=== PATIENT | female | born 1980 | race African-American/Black ===

== ENCOUNTER 2018-09-07 07:59 | Inpatient (IN) | payer SELFPAY ==
--- NOTE | 2018-09-07 08:46 | PCM.LDHP ---
L&D History of Present Illness - General Date of Service: 09/07/18 Admit Problem/Dx: 09/07/18 13:06 38-year-old 3 para 1011 -Irish female admitted for induction of labor on 09/07/2018 at 39-4/7 weeks gestational age with an BELLA of 09/10/2018. Source of Information: Patient History Limitations: Reports: No Limitations - History of Present Illness Introduction:: Sugey is a 30-year-old 3 para 1011 -Irish female at 39-4/7 weeks gestational age with an BELLA of 09/10/2018 as determined by a certain last menstrual period starting 11/26/2017 is supported by multiple ultrasounds during the course of . Admitted for elective induction of labor. Pitocin and artificial rupture membranes is planned. First visit was on 01/24/2018. Fundal height growth was appropriate. Weight gain was 30 pounds. Babies been in vertex presentation. Her 1 hour GTT was abnormal and she had a normal three-hour gtt. Patient plans to breast-feed. T-dap was administered on 06/16/2018. Patient has uterine fibroid measuring approximately 4 cm x 2.7 x 4 cm in the anterior uterus. Herpes strep screen is negative. Laboratory testing shows blood to be O+ negative MRI ice cream. hemoglobin was 13.5 g/dL. Eyelids are 324,000. She is rubella immune. RPR is nonreactive. Urine culture was negative. Hepatitis B surface antigen and HIV assays both negative. Gonorrhea and chlamydia assays both negative. Second trimester labs showed a large. This test a level of 159. Platelets are 271,000 and hemoglobin was 12.7. Group B strep screen was negative. Three-hour glucose tolerance test showed one hour glucose screen 96. 2R glucose is 162. Glucose is 149 and 3R glucose is 127 mg/dL. Allergies: none Medications: ends 1 daily Past medical history: 1. Miscarriage 1 2. Normal spontaneous vaginal delivery 2008 Past surgical history: Unremarkable Social history: Patient , lives in [place]. She denies any significant most alcohol, drugs or tobacco. 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 Family history: Negative for bleeding, blood clotting, -related problems. Nausea problems reported by the patient. Review of systems: In general patient has no complaints. Baby has been active. Skin: Negative Lungs: No infectious symptoms or shortness of breath Cardiovascular: No chest pain or exercise intolerance Breasts: No lumps, changes in size, pain, dimpling, discharge or axillary or supraclavicular concerns. GI: Negative : Changes associated with . Musculoskeletal: Negative Neurological: Negative In general the patient is well-developed, well-nourished, pleasant female of stated age in no acute distress. Skin is warm dry without lesions. HEENT, neck and back within normal limits. Lungs are clear with good breath sounds in all lung jalloh. Cardiovascular exam shows regular and rhythm without murmurs. Abdomen is gravid with fundal height of 41 cm. Baby in vertex presentation by Nicholas. Genital exam shows cervix to be 2 cm, 60% effaced, soft, -3 station, midposition Extremities and neurological exam are grossly within normal limits. - Related Data Allergies/Adverse Reactions: Allergies Allergy/AdvReac Type Severity Reaction Status Date / Time No Known Allergies Allergy Verified 05/06/18 20:55 Home Medications: Home Meds PNV95/Ferrous Fumarate/FA [ Tablet] 1 each PO DAILY 08/28/18 [History] H&P Review of Systems - Review of Systems: Review Of Systems: See Below L&D Exam - Exam Exam: See Below - Patient Data Result Diagrams: 09/07/18 09:45 Problem List Initiated/Reviewed/Updated: Yes Assessment/Plan Comment:: 1. 39-4/7 week intrauterine admitted for induction of labor 2. Risk factors for the include age 38 years, anterior uterine fibroid greatest dimension 4 cm and language. As patient speaks only Congolese. 3. Group B strep screen is negative 4. Patient plans to breast-feed 5. Patient undecided about pain control and labor and delivery 6. Rubella titer shows immunity is nonreactive. Plan: 1. Pitocin induction of labor with artificial rupture membranes. 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 She appears understand and wishes to proceed 2. Labor and analgesia as per patient desire 3. Support breast-feed decision 4. CBC and RPR upon admission.
[2018-09-07] MEDS ORDERED: Nalbuphine 20 MG/ML 1 ML Syringe IVPUSH PRN (09:19)
[2018-09-07] MEDS ORDERED: Ondansetron 4 MG/2 ML SDV IVPUSH PRN (09:19)
[2018-09-07] MEDS ORDERED: Sodium Chloride 0.9% 10 ML Syringe FLUSH PRN (09:19)
[2018-09-07] MEDS ORDERED: Oxytocin/Lactated Ringers 10 UNIT/1,000 ML BAG IV SCH ×2 (09:30)
[2018-09-07] MEDS: Lactated Ringers 1,000 ML IV SCH (09:53)
[2018-09-07] MEDS ORDERED: Lidocaine 1% 50 ML MDV INJECT ONE (10:00)
[2018-09-07] MEDS ORDERED: Oxytocin/Lactated Ringers 20 UNIT/1,000 ML BAG IV SCH (19:41)
[2018-09-07] MEDS ORDERED: Misoprostol 25 MCG (1/4 of 100 MCG) Tab ONE (20:32)
[2018-09-07] MEDS ORDERED: Misoprostol 25 MCG (1/4 of 100 MCG) Tab PO ONE (20:59)
[2018-09-07] MEDS: Misoprostol 25 MCG (1/4 of 100 MCG) Tab VAG SCH (23:34)
[2018-09-08] MEDS: Misoprostol 25 MCG (1/4 of 100 MCG) Tab VAG SCH (03:05)
[2018-09-08] MEDS: Lactated Ringers 1,000 ML IV SCH (05:11)
[2018-09-08] MEDS ORDERED: ePHEDrine 50 MG/ML SDV IVPUSH PRN (07:28)
[2018-09-08] MEDS ORDERED: diphenhydrAMINE 50 MG/ML SDV IVPUSH PRN (07:28)
[2018-09-08] MEDS ORDERED: fentaNYL/Bupivacaine-NS 2 MCG/ML-0.125%/PF 100 ML Bag EPIDUR PRN (07:28)
[2018-09-08] MEDS ORDERED: fentaNYL 100 MCG/2 ML SDV EPIDUR PRN (07:28)
--- NOTE | 2018-09-08 09:46 | PCM.PREANE ---
Preanesthetic Assessment - Anesthesia/Transfusion/Family Hx Anesthesia History: No Prior Anesthesia Family History of Anesthesia Reaction: No Transfusion History: No Prior Transfusion(s) - Review of Systems General: Fatigue Pulmonary: No Symptoms Cardiovascular: Dyspnea on Exertion Gastrointestinal: Abdominal Pain (labor) Neurological: No Symptoms Other: Reports: None - Physical Assessment Pulse: 98 O2 Sat by Pulse Oximetry: 97 Respiratory Rate: 16 Blood Pressure: 164/45 Temperature: 36.3 C Vital Signs: Last Vital Signs Temp 36.7 C 09/07/18 09:24 Pulse 89 09/07/18 09:24 Resp 16 09/07/18 09:24 BP 131/79 09/07/18 09:24 Pulse Ox Height: 1.57 m Weight: 80.286 kg ASA Class: 2 Mental Status: Alert & Oriented x3 Airway Class: Mallampati = 1 Dentition: Reports: Normal Dentition Thyro-Mental Finger Breadths: 3 Mouth Opening Finger Breadths: 3 ROM/Head Extension: Full Lungs: Clear to Auscultation, Normal Respiratory Effort Cardiovascular: Regular Rate, Regular Rhythm - Lab Values: Laboratory Last Values WBC 5.40 K/mm3 (3.98-10.04) 09/07/18 09:45 RBC 4.13 M/mm3 (3.98-5.22) 09/07/18 09:45 Hgb 13.1 gm/L (11.2-15.7) 09/07/18 09:45 Hct 37.4 % (34.1-44.9) 09/07/18 09:45 MCV 90.6 fl (79.4-94.8) 09/07/18 09:45 MCH 31.7 pg (25.6-32.2) 09/07/18 09:45 MCHC 35.0 g/dl (32.2-35.5) 09/07/18 09:45 RDW Std Deviation 51.4 fL (36.4-46.3) H 09/07/18 09:45 Plt Count 239 K/mm3 (182-369) 09/07/18 09:45 MPV 10.7 fl (9.4-12.3) 09/07/18 09:45 Neut % (Auto) 60.0 % (34.0-71.1) 09/07/18 09:45 Lymph % (Auto) 28.1 % (19.3-51.7) 09/07/18 09:45 Power % (Auto) 10.4 % (4.7-12.5) 09/07/18 09:45 Eos % (Auto) 1.3 (0.7-5.8) 09/07/18 09:45 Baso % (Auto) 0.2 % (0.1-1.2) 09/07/18 09:45 Neut # (Auto) 3.24 K/mm3 (1.56-6.13) 09/07/18 09:45 Lymph # (Auto) 1.52 K/mm3 (1.18-3.74) 09/07/18 09:45 Power # (Auto) 0.56 K/mm3 (0.24-0.36) H 09/07/18 09:45 Eos # (Auto) 0.07 K/mm3 (0.04-0.36) 09/07/18 09:45 Baso # (Auto) 0.01 K/mm3 (0.01-0.08) 09/07/18 09:45 RPR Non-reactive (NONREACTIVE) 09/07/18 09:45 - Allergies Allergies/Adverse Reactions: Allergies Allergy/AdvReac Type Severity Reaction Status Date / Time No Known Allergies Allergy Verified 05/06/18 20:55 - Anesthesia Plan Pre-Op Medication Ordered: None - Acknowledgements Anesthesia Type Planned: Epidural Pt an Appropriate Candidate for the Planned Anesthesia: Yes Alternatives and Risks of Anesthesia Discussed w Pt/Guardian: Yes Pt/Guardian Understands and Agrees with Anesthesia Plan: Yes PreAnesthesia Questionnaire - Past Health History Medical/Surgical History: Denies Medical/Surgical History Gastrointestinal History: Reports: GERD 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 Smoking Status *Q: Never Smoker Tobacco Use Within Last Twelve Months: No Recreational Drug Use History: No - HOME MEDS Home Medications: Home Meds PNV95/Ferrous Fumarate/FA [ Tablet] 1 each PO DAILY 08/28/18 [History] - CURRENT (IN HOUSE) MEDS Current Meds: Current Medications Diphenhydramine HCl (Benadryl) 25 mg IVPUSH Q6H PRN PRN Reason: Itching Ephedrine Sulfate (Ephedrine Sulfate) 5 mg IVPUSH ASDIRECTED PRN PRN Reason: HYPOTENTSION Fentanyl (Sublimaze) 100 mcg EPIDUR Q3H PRN PRN Reason: Pain Last Admin: 09/08/18 09:38 Dose: 100 mcg Fentanyl/Bupivacaine HCl (Jpblgcof-Stxhx-Gd 2 Mcg/Ml-0.125%) 100 ml EPIDUR ASDIRECTED PRN PRN Reason: Pain Last Admin: 09/08/18 09:39 Dose: 100 ml Lactated Ringer's (Ringers, Lactated) 1,000 mls @ 100 mls/hr IV ASDIRECTED VIRGILIO Last Admin: 09/08/18 05:11 Dose: 100 mls/hr Oxytocin/Lactated Ringer's (Pitocin In Lr 10 Units/1,000 Ml) 10 unit in 1,000 mls @ 500 mls/hr IV .CONTINUOUS VIRGILIO Oxytocin/Lactated Ringer's (Pitocin In Lr 20 Units/1,000 Ml) 20 unit in 1,000 mls @ 60 mls/hr IV TITRATE VIRGILIO; Protocol Last Admin: 09/07/18 19:44 Dose: 60 mls/hr Nalbuphine HCl (Nubain) 10 mg IVPUSH Q2H PRN PRN Reason: pain Last Admin: 09/08/18 03:18 Dose: 10 mg Ondansetron HCl (Zofran) 4 mg IVPUSH Q4H PRN PRN Reason: Nausea/Vomiting Sodium Chloride (Saline Flush) 10 ml FLUSH ASDIRECTED PRN PRN Reason: Keep Vein Open Discontinued Medications Oxytocin/Lactated Ringer's (Pitocin In Lr 10 Units/1,000 Ml) 10 unit in 1,000 mls @ 12 mls/hr IV TITRATE VIRGILIO; Protocol Last Titration: 09/07/18 18:35 Dose: 20 munits/min, 120 mls/hr Lidocaine HCl (Xylocaine 1%) 50 ml INJECT ONETIME ONE Stop: 09/07/18 10:01 Misoprostol (Cytotec) Confirm Administered Dose 25 mcg .ROUTE .STK-MED ONE Stop: 09/07/18 20:33 Last Admin: 09/07/18 21:07 Dose: Not Given Misoprostol (Cytotec) 25 mcg PO ONETIME ONE Stop: 09/07/18 21:00 Last Admin: 09/07/18 20:35 Dose: 25 mcg Misoprostol (Cytotec) 50 mcg VAG Q3H VIRGILIO Last Admin: 09/08/18 03:05 Dose: 50 mcg
--- NOTE | 2018-09-08 15:25 | PCM.SN ---
- Free Text/Narrative Note: Sugey is a 38-year-old 3 para 2012 -Surinamese female who is admitted on 09/07/2018 for induction of labor. She was 39-4/7 weeks gestational age. Induction initially was with Pitocin but with less than optimal sensitivity noted to the medication she underwent several doses of Cytotec during the course of the night of her induction. With this patient changed to 3 cm, 80% effaced and had spontaneous rupture membranes. heart tones remained normal throughout the course. Patient had an epidural late in labor. She had a couple doses of Nubain prior to that. She went rapidly from 5-10 cm dilation. She pushed but with contractions it was difficult to tell whether the heart tones were were normal because of maternal heart rate was in the 130s to 140s. Because intermittent auscultation of heart rate in the 70s and 80s decision was made to facilitate delivery with vacuum extraction. Vacuum extractor was applied and with one contraction the baby's head delivered. Shoulders delivered without problems and the remainder of the baby followed without concerns. Baby was placed on mom's abdomen. The baby was born at 1018 hrs. on 09/08/2018. He weighed 3490 g (7 pounds 11.1 ounces), had Apgars of 4 and 7 end of length of 20.5 inches. Cord was clamped 2 and was cut by the patient's mother. The baby was taken to the warmer and was given blow-by oxygen and a short course of positive pressure ventilation. Baby responded relatively quickly and did well. IV Pitocin was restarted at a rapid rate after delivery the baby to facilitate increase in uterine tone and decrease likelihood of bleeding. Baby delivered in a direct occiput anterior position. Cord blood was obtained after the delivery of the baby. The patient was noted to have second-degree laceration. This was repaired with 3 -0 Monocryl using the epidural anesthesia for pain control. The placenta delivered in a Meza presentation at 1023 hrs., appeared intact and complete and was discarded per patient desire. Patient plans to breast-feed. Estimated blood loss 100 mL. Condition: Good
[2018-09-08] MEDS ORDERED: Witch Hazel Medicated Pads 40/Jar TOP PRN (16:59)
[2018-09-08] MEDS ORDERED: Benzocaine/Menthol 20%-0.5% Spray 56 GM Canister TOP PRN (16:59)
[2018-09-08] MEDS ORDERED: Docusate Sodium 100 MG Cap PO PRN (16:59)
[2018-09-08] MEDS ORDERED: Lanolin 100% Cream 7 GM Tube TOP PRN (16:59)
[2018-09-08] MEDS ORDERED: Acetaminophen 325 MG Tab PO PRN (16:59)
[2018-09-08] MEDS ORDERED: Bupivacaine 0.25% 10 ML SDV ONE (22:00)
[2018-09-09] MEDS: Ibuprofen 600 MG Tab PO PRN ×2 (01:49→22:55)
--- NOTE | 2018-09-09 06:40 | PCM.SN ---
- Free Text/Narrative Note: note: day 1 status post vacuum extraction delivery Patient is doing well in the period. Minimal lochia, voiding well, ambulated without problems. Nursing without concerns. Patient is afebrile, vital signs are stable Abdomen is flat, soft, uterus is below the umbilicus and is firm and nontender. Legs are nontender. Assessment: recovery going well. Plan: Routine care. Patient be discharged home within the next 24-48 hours.
--- NOTE | 2018-09-09 07:43 | PCM48HPAN ---
Post Anesthesia Note - EVALUATION WITHIN 48HRS OF ANESTHETIC Vital Signs in Normal Range: Yes Patient Participated in Evaluation: Yes Respiratory Function Stable: Yes Airway Patent: Yes Cardiovascular Function Stable: Yes Hydration Status Stable: Yes Pain Control Satisfactory: Yes Nausea and Vomiting Control Satisfactory: Yes Mental Status Recovered: Yes (no complaints) Pulse Rate: 102 Resp Rate: 14 Temperature: 98.2 F Blood Pressure: 128/81
[2018-09-09] MEDS: Prenatal Multivitamin with Calcium/Folic Acid/Iron Tab PO SCH (16:27)
--- NOTE | 2018-09-10 09:48 | PCM.PNPP ---
- General Info Date of Service: 09/10/18 Functional Status: Reports: Pain Controlled, Tolerating Diet, Ambulating, Urinating - Review of Systems General: Reports: No Symptoms Pulmonary: Reports: No Symptoms Cardiovascular: Reports: No Symptoms Gastrointestinal: Reports: No Symptoms Genitourinary: Reports: No Symptoms Musculoskeletal: Reports: No Symptoms - Patient Data Vital Signs - Most Recent: Last Vital Signs Temp 36.7 C 09/10/18 08:42 Pulse 95 09/10/18 08:42 Resp 14 09/10/18 08:42 BP 125/82 09/10/18 08:42 Pulse Ox 99 09/10/18 08:42 Weight - Most Recent: 80.286 kg I&O - Last 24 Hours: Intake & Output 09/09/18 09/10/18 09/10/18 22:59 06:59 14:59 Intake Total 600 Balance 600 Med Orders - Current: Current Medications Acetaminophen (Tylenol) 650 mg PO Q4H PRN PRN Reason: mild pain or fever Benzocaine/Menthol (Dermoplast Pain Relief [place]) 0 gm TOP ASDIRECTED PRN PRN Reason: Perineal Comfort Measure Docusate Sodium (Colace) 100 mg PO BID PRN PRN Reason: Constipation Last Admin: 09/09/18 01:48 Dose: 100 mg Emollient Ointment (Lansinoh Hpa) 0 gm TOP ASDIRECTED PRN PRN Reason: Sore Nipples Ibuprofen (Motrin) 600 mg PO Q4H PRN PRN Reason: Mild pain or fever Last Admin: 09/09/18 22:55 Dose: 600 mg Prenat Multivit/[place]/Iron/Folic Ac ( Plus Iron) 1 each PO DAILY VIRGILIO Last Admin: 09/09/18 16:27 Dose: Not Given Witch Anabel (Tucks) 1 pad TOP ASDIRECTED PRN PRN Reason: Pain Discontinued Medications Bupivacaine HCl (Sensorcaine-Mpf 0.25%) 10 ml .ROUTE .STK-MED ONE Stop: 09/08/18 22:01 Diphenhydramine HCl (Benadryl) 25 mg IVPUSH Q6H PRN PRN Reason: Itching Ephedrine Sulfate (Ephedrine Sulfate) 5 mg IVPUSH ASDIRECTED PRN PRN Reason: HYPOTENTSION Fentanyl (Sublimaze) 100 mcg EPIDUR Q3H PRN PRN Reason: Pain Last Admin: 09/08/18 09:38 Dose: 100 mcg Fentanyl/Bupivacaine HCl ([place]ykkbt[place]-Mbtrn-Jw 2 Mcg/Ml-0.125%) 100 ml EPIDUR ASDIRECTED PRN PRN Reason: Pain Last Admin: 09/08/18 09:39 Dose: 100 ml Lactated Ringer's (Ringers, Lactated) 1,000 mls @ 100 mls/hr IV ASDIRECTED VIRGILIO Last Admin: 09/08/18 05:11 Dose: 100 mls/hr Oxytocin/Lactated Ringer's (Pitocin In Lr 10 Units/1,000 Ml) 10 unit in 1,000 mls @ 500 mls/hr IV .CONTINUOUS VIRGILIO Oxytocin/Lactated Ringer's (Pitocin In Lr 10 Units/1,000 Ml) 10 unit in 1,000 mls @ 12 mls/hr IV TITRATE VIRGILIO; Protocol Last Titration: 09/07/18 18:35 Dose: 20 munits/min, 120 mls/hr Oxytocin/Lactated Ringer's (Pitocin In Lr 20 Units/1,000 Ml) 20 unit in 1,000 mls @ 60 mls/hr IV TITRATE VIRGILIO; Protocol Last Admin: 09/07/18 19:44 Dose: 60 mls/hr Lidocaine HCl (Xylocaine 1%) 50 ml INJECT ONETIME ONE Stop: 09/07/18 10:01 Last Admin: 09/08/18 23:26 Dose: Not Given Misoprostol (Cytotec) Confirm Administered Dose 25 mcg .ROUTE .STK-MED ONE Stop: 09/07/18 20:33 Last Admin: 09/07/18 21:07 Dose: Not Given Misoprostol (Cytotec) 25 mcg PO ONETIME ONE Stop: 09/07/18 21:00 Last Admin: 09/07/18 20:35 Dose: 25 mcg Misoprostol (Cytotec) 50 mcg VAG Q3H VIRGILIO Last Admin: 09/08/18 03:05 Dose: 50 mcg Nalbuphine HCl (Nubain) 10 mg IVPUSH Q2H PRN PRN Reason: pain Last Admin: 09/08/18 03:18 Dose: 10 mg Ondansetron HCl (Zofran) 4 mg IVPUSH Q4H PRN PRN Reason: Nausea/Vomiting Sodium Chloride (Saline Flush) 10 ml FLUSH ASDIRECTED PRN PRN Reason: Keep Vein Open - Infant Interaction Disposition, : in Room with Family Interaction: Holding Feeding: Breastfed ; Nursed Well Support Person: , Mother - Recovery Exam Fundal Tone: Firm Fundal Level: 1 Fingerbreadths Below Umbilicus Fundal Placement: Midline Lochia Amount: Small Lochia Color: Rubra/Red Perineum Description: Other (see below) Other Perinuem Description: 2nd degree with repair Episiotomy/Laceration: Approximated Bladder Status: Voiding Urinary Elimination: Voided - Exam General: Alert, Oriented, Cooperative GI/Abdominal Exam: Soft, Non-Tender Extremities: Normal Inspection Skin: Warm, Dry, Intact - Problem List Review Problem List Initiated/Reviewed/Updated: Yes - My Orders Last 24 Hours: My Active Orders 09/10/18 09:43 Ready for Discharge [RC] PER UNIT ROUTINE - Assessment Assessment:: S/p - Plan Plan:: S/p * Routine cares * Encourage breast feeding * Discharge home in 2 days
--- NOTE | 2018-09-10 09:52 | PCM.DCSUM1 ---
Discharge Summary - Discharge Data Discharge Date: 09/10/18 Discharge Disposition: Home, Self-Care 01 Condition: Good - Patient Summary/Data Complications: None Consults: None Recommended Follow-up Testing/Procedures: Follow up in 2 weeks for check Hospital Course: 38 y/o at 39 4/7 wks presented for elective IOL. This was done with cytotec, pitocin, and AROM. She progressed well and underwent a VAVD due to concerns for bradycardia. See delivery note. she did well and was discharged home on PPD#2 - Patient Instructions Diet: Regular Diet as Tolerated Activity: As Tolerated Activity, Other: Pelvic rest for 6 weeks Driving: May Drive Today Showering/Bathing: May Shower Showering/Bathing, Other: May Bathe Notify Provider of: Fever, Increased Pain, Swelling and Redness, Drainage, Nausea and/or Vomiting - Discharge Plan *PRESCRIPTION DRUG MONITORING PROGRAM REVIEWED*: Not Applicable *COPY OF PRESCRIPTION DRUG MONITORING REPORT IN PATIENT CHRISTINA: Not Applicable Home Medications: Home Meds PNV95/Ferrous Fumarate/FA [ Tablet] 1 each PO DAILY 08/28/18 [History] Docusate Sodium [Colace] 100 mg PO BID PRN cap 09/10/18 [Rx] Ibuprofen [Motrin] 600 mg PO Q4H PRN tablet 09/10/18 [Rx] Referrals: Luis Powers MD [Primary Care Provider] - (2 weeks for post op check ) - Discharge Summary/Plan Comment DC Time >30 min.: No - Patient Data Vitals - Most Recent: Last Vital Signs Temp 36.7 C 09/10/18 08:42 Pulse 95 09/10/18 08:42 Resp 14 09/10/18 08:42 BP 125/82 09/10/18 08:42 Pulse Ox 99 09/10/18 08:42 Weight - Most Recent: 80.286 kg I&O - Last 24 hours: Intake & Output 09/09/18 09/10/18 09/10/18 22:59 06:59 14:59 Intake Total 600 Balance 600 Med Orders - Current: Current Medications Acetaminophen (Tylenol) 650 mg PO Q4H PRN PRN Reason: mild pain or fever Benzocaine/Menthol (Dermoplast Pain Relief [place]) 0 gm TOP ASDIRECTED PRN PRN Reason: Perineal Comfort Measure Docusate Sodium (Colace) 100 mg PO BID PRN PRN Reason: Constipation Last Admin: 09/09/18 01:48 Dose: 100 mg Emollient Ointment (Lansinoh Hpa) 0 gm TOP ASDIRECTED PRN PRN Reason: Sore Nipples Ibuprofen (Motrin) 600 mg PO Q4H PRN PRN Reason: Mild pain or fever Last Admin: 09/09/18 22:55 Dose: 600 mg Prenat Multivit/[place]/Iron/Folic Ac ( Plus Iron) 1 each PO DAILY VIRGILIO Last Admin: 09/09/18 16:27 Dose: Not Given [place] Anabel (Tucks) 1 pad TOP ASDIRECTED PRN PRN Reason: Pain Discontinued Medications Bupivacaine HCl (Sensorcaine-Mpf 0.25%) 10 ml .ROUTE .[facility]-MED ONE Stop: 09/08/18 22:01 Diphenhydramine HCl (Benadryl) 25 mg IVPUSH Q6H PRN PRN Reason: Itching Ephedrine Sulfate (Ephedrine Sulfate) 5 mg IVPUSH ASDIRECTED PRN PRN Reason: HYPOTENTSION Fentanyl (Sublimaze) 100 mcg EPIDUR Q3H PRN PRN Reason: Pain Last Admin: 09/08/18 09:38 Dose: 100 mcg Fentanyl/Bupivacaine HCl ([place]-Mkxab-Pa 2 Mcg/Ml-0.125%) 100 ml EPIDUR ASDIRECTED PRN PRN Reason: Pain Last Admin: 09/08/18 09:39 Dose: 100 ml Lactated Ringer's (Ringers, Lactated) 1,000 mls @ 100 mls/hr IV ASDIRECTED VIRGILIO Last Admin: 09/08/18 05:11 Dose: 100 mls/hr Oxytocin/Lactated Ringer's (Pitocin In Lr 10 Units/1,000 Ml) 10 unit in 1,000 mls @ 500 mls/hr IV .CONTINUOUS VIRGILIO Oxytocin/Lactated Ringer's (Pitocin In Lr 10 Units/1,000 Ml) 10 unit in 1,000 mls @ 12 mls/hr IV TITRATE VIRGILIO; Protocol Last Titration: 09/07/18 18:35 Dose: 20 munits/min, 120 mls/hr Oxytocin/Lactated Ringer's (Pitocin In Lr 20 Units/1,000 Ml) 20 unit in 1,000 mls @ 60 mls/hr IV TITRATE VIRGILIO; Protocol Last Admin: 09/07/18 19:44 Dose: 60 mls/hr Lidocaine HCl (Xylocaine 1%) 50 ml INJECT ONETIME ONE Stop: 09/07/18 10:01 Last Admin: 09/08/18 23:26 Dose: Not Given Misoprostol (Cytotec) Confirm Administered Dose 25 mcg .ROUTE .STK-MED ONE Stop: 09/07/18 20:33 Last Admin: 09/07/18 21:07 Dose: Not Given Misoprostol (Cytotec) 25 mcg PO ONETIME ONE Stop: 09/07/18 21:00 Last Admin: 09/07/18 20:35 Dose: 25 mcg Misoprostol (Cytotec) 50 mcg VAG Q3H VIRGILIO Last Admin: 09/08/18 03:05 Dose: 50 mcg Nalbuphine HCl (Nubain) 10 mg IVPUSH Q2H PRN PRN Reason: pain Last Admin: 09/08/18 03:18 Dose: 10 mg Ondansetron HCl (Zofran) 4 mg IVPUSH Q4H PRN PRN Reason: Nausea/Vomiting Sodium Chloride (Saline Flush) 10 ml FLUSH ASDIRECTED PRN PRN Reason: Keep Vein Open
[2018-09-10] MEDS: Prenatal Multivitamin with Calcium/Folic Acid/Iron Tab PO SCH (14:38)
== END 2018-09-10 15:00 | disposition home or self-care (01) | DRG 807 ==
LOC: JD.OB 08:21 → OBSVTOIN 09-08 10:18 → JD.OB 09-08 10:19
PROVIDERS: ADMIT Obstetrics & Gynecology; ATTEND Obstetrics & Gynecology
PROC: 3E033VJ Introduction of Other Hormone into Peripheral Vein, Percutaneous Approach (ICD-10-PCS; principal; 2018-09-08)
PROC: 10907ZC Drainage of Amniotic Fluid, Therapeutic from Products of Conception, Via Natural or Artificial Opening (ICD-10-PCS; principal; 2018-09-08)
PROC: 3E0P7VZ Introduction of Hormone into Female Reproductive, Via Natural or Artificial Opening (ICD-10-PCS; principal; 2018-09-08)
PROC: 10D07Z6 Extraction of Products of Conception, Vacuum, Via Natural or Artificial Opening (ICD-10-PCS; principal; 2018-09-08)
PROC: 0KQM0ZZ Repair Perineum Muscle, Open Approach (ICD-10-PCS; principal; 2018-09-08)
PROC: 3E0R3BZ Introduction of Anesthetic Agent into Spinal Canal, Percutaneous Approach (ICD-10-PCS; 2018-09-08)
PROC: 00HU33Z Insertion of Infusion Device into Spinal Canal, Percutaneous Approach (ICD-10-PCS; 2018-09-08)
DX: O34.13 Maternal care for benign tumor of corpus uteri, third trimester (principal); Z37.0 Single live birth; O76 Abnormality in fetal heart rate and rhythm complicating labor and delivery; D25.9 Leiomyoma of uterus, unspecified; O70.1 Second degree perineal laceration during delivery; Z3A.39 39 weeks gestation of pregnancy
CPT/HCPCS: 01967; 36415; 51701; 59025; 59409; 85025; 86592; A9270-GY; J2300; J2590; J3010; J3490; J7120

== ENCOUNTER 2019-02-01 02:52 | Emergency (ER) | payer MEDICAID, SELFPAY ==
[2019-02-01] MEDS ORDERED: Ondansetron 4 MG Tab.DIS PO ONE (04:26)
--- NOTE | 2019-02-01 04:30 | EDM.PDOC ---
ED HPI GENERAL MEDICAL PROBLEM - General Chief Complaint: Gastrointestinal Problem Stated Complaint: vomiting Time Seen by Provider: 02/01/19 03:08 Source of Information: Reports: Patient, Family (Mother), RN Notes Reviewed History Limitations: Reports: Language Barrier (Yi is not her 1st language) - History of Present Illness INITIAL COMMENTS - FREE TEXT/NARRATIVE: Mrs. Weaver is a very pleasant 38-year-old woman with no past medical or surgical history, who states that she had been experiencing vaginal itchiness for about 5 months, even while with her child that was delivered on 09/08. The patient did not, however, discuss her vaginal itchiness with her OB/ TEAM GUIDE. The patient then developed lower back pain about a week ago. It is stabbing in character, and constant. She has not identified any modifiers. No recent fever. The patient inserted vaginal miconazole for the first time last night, prior to going to bed. She then developed nausea and vomiting around 02: 00 this morning. She denies having any abdominal pain or urinary symptoms. No recent constipation or diarrhea. No prior similar symptoms. The patient does not have a PCP. Her FEATHER MAKER is Dr. Luis Powers. She last saw him around October 2018. Lower Back Pain Score (Numeric/FACES): 10 - Related Data Allergies Allergy/AdvReac Type Severity Reaction Status Date / Time No Known Allergies Allergy Verified 02/01/19 03:10 Home Meds: Home Meds PNV95/Ferrous Fumarate/FA [ Tablet] 1 each PO DAILY 08/28/18 [History] Docusate Sodium [Colace] 100 mg PO BID PRN cap 09/10/18 [Rx] Ibuprofen [Motrin] 600 mg PO Q4H PRN tablet 09/10/18 [Rx] Nitrofurantoin Monohyd/M-Cryst [Macrobid 100 mg Capsule] 1 cap PO Q12H #9 capsule 02/01/19 [Rx] Ondansetron [Zofran ODT] 1 tab PO Q8H PRN #10 tab.dis 02/01/19 [Rx] Past Medical History FEATHER MAKER History: Reports: Endocrine/Metabolic History: Reports: Obesity/BMI 30+ Social & Family History - Tobacco Use Smoking Status *Q: Never Smoker - Caffeine Use Caffeine Use: Reports: Tea - Alcohol Use Alcohol Use History: No - Recreational Drug Use Recreational Drug Use: No - Living Situation & Occupation Living situation: Reports: , with Spouse, with Family (3 kids + mother-in -law) ED ROS GENERAL - Review of Systems Review Of Systems: ROS reveals no pertinent complaints other than HPI. ED EXAM, GENERAL - Physical Exam Exam: See Below Exam Limited By: No Limitations General Appearance: Alert, WD/WN, No Apparent Distress Eye Exam: Bilateral Eye: EOMI, Normal Inspection Ears: Normal External Exam, Hearing Grossly Normal Nose: Normal Inspection Throat/Mouth: Normal Inspection, Normal Lips, Normal Voice, No Airway Compromise Head: Atraumatic, Normocephalic Neck: Normal Inspection, Full Range of Motion Respiratory/Chest: No Respiratory Distress, Lungs Clear, Normal Breath Sounds, No Accessory Muscle Use Cardiovascular: Normal Peripheral Pulses, Regular Rate, Rhythm, No Edema, No Gallop, No JVD, No Murmur, No Rub Peripheral Pulses: 4+: Radial (L), Radial (R) GI/Abdominal: Normal Bowel Sounds, Soft, No Organomegaly, No Distention, No Abnormal Bruit, No Mass, Tender (Mild, suprapubic region only. Nontender elsewhere.) (Female) Exam: Other (Vagina coated with miconazole cream). No: Vaginal Lesions Rectal (Female) Exam: Deferred Back Exam: Normal Inspection, Full Range of Motion. No: CVA Tenderness (L), CVA Tenderness (R) Extremities: Normal Inspection, Normal Range of Motion, No Pedal Edema, Normal Capillary Refill Neurological: Alert, Oriented, Normal Cognition, No Motor/Sensory Deficits Psychiatric: Normal Affect Skin Exam: Warm, Dry, Intact, Normal Color, No Rash Course - Vital Signs Last Recorded V/S: Last Vital Signs Temp 36.6 C 02/01/19 03:05 Pulse 89 02/01/19 03:05 Resp 18 02/01/19 03:05 BP 132/94 H 02/01/19 03:05 Pulse Ox 99 02/01/19 03:05 - Orders/Labs/Meds Labs: Laboratory Tests 02/01/19 02/01/19 02/01/19 Range/Units 04:38 04:38 04:40 WBC 11.35 H (3.98-10.04) K/mm3 RBC 4.28 (3.98-5.22) M/mm3 Hgb 13.0 (11.2-15.7) gm/dl Hct 38.6 (34.1-44.9) % MCV 90.2 (79.4-94.8) fl MCH 30.4 (25.6-32.2) pg MCHC 33.7 (32.2-35.5) g/dl RDW Std Deviation 46.7 H (36.4-46.3) fL Plt Count 336 D (182-369) K/mm3 MPV 9.9 (9.4-12.3) fl Neut % (Auto) 78.0 H (34.0-71.1) % Lymph % (Auto) 15.8 L (19.3-51.7) % [place]inger % (Auto) 5.6 (4.7-12.5) % Eos % (Auto) 0.4 L (0.7-5.8) Baso % (Auto) 0.1 (0.1-1.2) % Neut # (Auto) 8.86 H (1.56-6.13) K/mm3 Lymph # (Auto) 1.79 (1.18-3.74) K/mm3 Grainger # (Auto) 0.64 H (0.24-0.36) K/mm3 Eos # (Auto) 0.04 (0.04-0.36) K/mm3 Baso # (Auto) 0.01 (0.01-0.08) K/mm3 Sodium 141 (136-145) mEq/L Potassium 3.4 L (3.5-5.1) mEq/L Chloride 104 (98-107) mEq/L Carbon Dioxide 26 (21-32) mEq/L Anion Gap 14.4 (5-15) BUN 13 (7-18) mg/dL Creatinine 0.9 (0.55-1.02) mg/dL Est Cr Clr Drug Dosing 76.26 mL/min Estimated GFR (MDRD) > 60 (>60) mL/min BUN/Creatinine Ratio 14.4 (14-18) Glucose 114 H (74-106) mg/dL Calcium 9.7 (8.5-10.1) mg/dL Total Bilirubin 0.4 (0.2-1.0) mg/dL AST 24 (15-37) U/L ALT 32 (14-59) U/L Alkaline Phosphatase 114 (46-116) U/L Total Protein 8.8 H (6.4-8.2) g/dl Albumin 3.8 (3.4-5.0) g/dl Globulin 5.0 gm/dL Albumin/Globulin Ratio 0.8 L (1-2) Urine Color Yellow (Yellow) Urine Appearance Cloudy H (Clear) Urine pH 6.0 (5.0-8.0) Ur Specific [place] 1.025 (1.005-1.030) Urine Protein 2+ H (Negative) Urine Glucose (UA) Negative (Negative) Urine Ketones Negative (Negative) Urine Occult Blood 3+ H (Negative) Urine Nitrite Negative (Negative) Urine Bilirubin Negative (Negative) Urine Urobilinogen 0.2 (0.2-1.0) Ur Leukocyte Esterase Negative (Negative) Urine RBC >100 H (0-5) /hpf Urine WBC 0-5 (0-5) /hpf Ur Epithelial Cells 5-10 H (0-5) /hpf Urine Bacteria Many H (FEW) /hpf Urine Mucus Moderate H (FEW) /hpf Urine HCG, Qual (NEGATIVE) 02/01/19 Range/Units 04:40 WBC (3.98-10.04) K/mm3 RBC (3.98-5.22) M/mm3 Hgb (11.2-15.7) gm/dl Hct (34.1-44.9) % MCV (79.4-94.8) fl MCH (25.6-32.2) pg MCHC (32.2-35.5) g/dl RDW Std Deviation (36.4-46.3) fL Plt Count (182-369) K/mm3 MPV (9.4-12.3) fl Neut % (Auto) (34.0-71.1) % Lymph % (Auto) (19.3-51.7) % Grainger % (Auto) (4.7-12.5) % Eos % (Auto) (0.7-5.8) Baso % (Auto) (0.1-1.2) % Neut # (Auto) (1.56-6.13) K/mm3 Lymph # (Auto) (1.18-3.74) K/mm3 [place]inger # (Auto) (0.24-0.36) K/mm3 Eos # (Auto) (0.04-0.36) K/mm3 Baso # (Auto) (0.01-0.08) K/mm3 Sodium (136-145) mEq/L Potassium (3.5-5.1) mEq/L Chloride (98-107) mEq/L Carbon Dioxide (21-32) mEq/L Anion Gap (5-15) BUN (7-18) mg/dL Creatinine (0.55-1.02) mg/dL Est Cr Clr Drug Dosing mL/min Estimated GFR (MDRD) (>60) mL/min BUN/Creatinine Ratio (14-18) Glucose (74-106) mg/dL Calcium (8.5-10.1) mg/dL Total Bilirubin (0.2-1.0) mg/dL AST (15-37) U/L ALT (14-59) U/L Alkaline Phosphatase (46-116) U/L Total Protein (6.4-8.2) g/dl Albumin (3.4-5.0) g/dl Globulin gm/dL Albumin/Globulin Ratio (1-2) Urine Color (Yellow) Urine Appearance (Clear) Urine pH (5.0-8.0) Ur Specific [place] (1.005-1.030) Urine Protein (Negative) Urine Glucose (UA) (Negative) Urine Ketones (Negative) Urine Occult Blood (Negative) Urine Nitrite (Negative) Urine Bilirubin (Negative) Urine Urobilinogen (0.2-1.0) Ur Leukocyte Esterase (Negative) Urine RBC (0-5) /hpf Urine WBC (0-5) /hpf Ur Epithelial Cells (0-5) /hpf Urine Bacteria (FEW) /hpf Urine Mucus (FEW) /hpf Urine HCG, Qual Negative (NEGATIVE) Meds: Medications Discontinued Medications Generic Name Dose Route Start Last Admin Trade Name Freq PRN Reason Stop Dose Admin Ondansetron HCl 4 mg 02/01/19 04:26 02/01/19 04:42 Zofran Odt PO 02/01/19 04:27 4 mg ONETIME ONE Administration - Re-Assessments/Exams Free Text/Narrative Re-Assessment/Exam: 02/01/19 04:28 I have ordered a urinalysis and urine test to rule out a UTI/ as the cause of the patient's lower back pain. I have ordered some blood work to make sure that she has not suffered a significant fluid or electrolyte shift as a result of her vomiting, and I have ordered some Zofran to treat her nausea. After the patient has provided a urine sample, I will perform a pelvic exam to ascertain whether or not she has a vaginal infection, but based on her history, I doubt it, since she reports having vaginal itchiness since prior to delivering on 09/08/2018. Her delivery, however, was vaginal, therefore if she had a vaginal infection, it would likely have been seen by Dr. Powers at the time of delivery. 02/01/19 05:36 I performed a pelvic examination. The patient's vagina is coated with the miconazole cream, therefore I did not obtain any vaginal/cervical swabs. I did not, however, see any abnormalities, such as erythema or any evidence of a yeast infection. 02/01/19 05:55 The patient's CBC is remarkable for a WBC count mildly elevated at 11.35, with the remainder of the CBC being normal. Her CMP is remarkable for potassium slightly depressed at 3.4, and a blood glucose mildly elevated at 114, with the remainder of the CMP being normal. Her urinalysis is remarkable for 3+ occult blood with >100 RBCs, leukocyte esterase negative with 0-5 WBCs, and nitrate negative with many bacteria and only 5-10 epithelial cells. While not a certainty, I believe the patient's urinalysis is consistent with a UTI. I have ordered a urine culture, and we'll start the patient on nitrofurantoin. I will discharge her home with the recommendation that she follow-up with Dr. Powers on Wednesday afternoon, 02/03/2019, to not only check on the urine culture results, but also repeat a pelvic exam at that time to see if there is any evidence of vaginitis. Departure - Departure Time of Disposition: 05:59 Disposition: Home, Self-Care 01 Condition: Good Clinical Impression: UTI (urinary tract infection) - Discharge Information *PRESCRIPTION DRUG MONITORING PROGRAM REVIEWED*: Not Applicable *COPY OF PRESCRIPTION DRUG MONITORING REPORT IN PATIENT CHRISTINA: Not Applicable Referrals: Luis Powers MD [Primary Care Provider] - Forms: ED Department Discharge Additional Instructions: You were seen in the emergency room for 1 week of lower back pain and lower abdominal pain, along with nausea and vomiting this morning. Workup in the ER included blood work, urinalysis, and a urine test. Your urinalysis showed that you have a urinary tract infection. The remainder of your workup was unremarkable. You have been started on the antibiotic nitrofurantoin (Macrobid). Prescription for nitrofurantoin and the anti-nausea medicine Zofran have been sent to the [facility], located in the [facility] grocery store. Take one tablet of nitrofurantoin every 12 hours, starting this evening, 02/01/2019, as prescribed. Finish the entire prescription unless told otherwise by Dr. Powers. Dissolve one tablet of Zofran on your tongue up to every 8 hours, as needed for nausea/vomiting. Stay adequately hydrated. You need to follow-up with Dr. Powers this coming Wednesday afternoon, 02/03/2019. Someone will contact you with an appointment time. If any other problems, please do not hesitate to return to the ER.
[2019-02-01] MEDS ORDERED: Nitrofurantoin Monohydrate/Macrocrystalline 100 MG Cap PO STA (05:59)
== END 2019-02-01 07:00 | disposition home or self-care (01) ==
LOC: JD.ED 02:52
DX: N39.0 Urinary tract infection, site not specified (principal)
CPT/HCPCS: 36415; 80053; 81001; 81025; 85025; 87086; 99284; A9270